=== PATIENT | female | born 1990 | race African-American/Black ===

== ENCOUNTER 2023-12-10 04:57 | Emergency (ER) | payer MEDICAID, OTHER ==
[~2023-12-10] VITALS: Ht 170.2 cm; Wt 88.0 kg
[2023-12-10 06:29] LABS: Urine Bacteria NONE SEEN /hpf (None Seen); Urine Blood Negative /uL (Negative); Urine Clarity Clear (Clear); Urine Color Yellow (Yellow); Urine Mucus FEW (None Seen); Urine Protein, UAD Negative (Negative); Urine Specific Gravity 1.023 (1.001-1.035); Urine Urobilinogen Normal (Negative); Urine WBC 1 /hpf (0 - 5)
[2023-12-10 07:36] VITALS: BP 134/67; PULSE 136; RESP 20; TEMP 98; O2SAT 99
[2023-12-10] MEDS ORDERED: MELO-335 PO (07:39)
[2023-12-10] MEDS ORDERED: CYCL-839 PO (07:39)
== END 2023-12-10 07:40 | disposition home or self-care (01) ==
LOC: ER 04:57
DX: S33.5XXA Sprain of ligaments of lumbar spine, initial encounter (principal); Z79.899 Other long term (current) drug therapy; X58.XXXA Exposure to other specified factors, initial encounter; Y93.89 Activity, other specified; Y92.89 Other specified places as the place of occurrence of the external cause; Y99.8 Other external cause status
CPT/HCPCS: 81001